=== PATIENT | male | born 1975 | race Caucasian/White ===

== ENCOUNTER 2017-08-08 03:59 | Emergency (ER) | payer MEDICAID ==
[~2017-08-08] VITALS: Ht 172.7 cm; Wt 86.2 kg
[2017-08-08 04:27] LABS: HEMOGLOBIN 16.6 g/dL (14.1-18.0); LYMPH # 1.7 K/mm3 (0.7-4.5)
[2017-08-08 04:42] LABS: URINE BILIRUBIN - DIPSTICK NEGATIVE (NEG); URINE BLOOD NEGATIVE (NEG)
--- NOTE | 2017-08-08 05:27 | Emergency Room Report ---
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 N Clinical Suspician of Infection? N Mental Status: 1 - Regular (Normal Baseline) Sepsis Risk:Low Sepsis Risk Have you (or family members/close friends) recently traveled outside the [place]? N If Yes, where/when: Have you had exposure to infectious disease within the past month? N TB? Other? Specify: Source patient, RN notes reviewed, family, old records Exam Limitations no limitations Comment acute onset of rt upper abd pain with nausea - no fever Cardiac Chest Pain Chest pain indicative of cardiac No Timing/Duration this evening Severity moderate ALLERGIES Coded Allergies: Penicillins (08/08/17) History Medical History General CAD? Yes Angina: No PR: No Hypertension? Yes Hyperlipidemia? Yes CHF? No DVT? No PE? No COPD? No Asthma? No Anemia? No GERD? No Gastric ulcers? No GI Bleed? No Hernia? No Thyroid Problems? No Hypothyroidism? No CVA? No Seizures? No Diabetes? No Renal Insuffiency? No End Stage Renal Disease? No UTI? No Stones? No BPH? No GB Disease: No Nephritic Syndrome? No Asplenia? No Hepatitis? No Sickle Cell Disease? No Arthritis? No Migraines? No Cataracts? No Glaucoma? No MRSA? No HIV? No TB? No Anxiety? No Depression? No Cancer? No More? Yes Additional hx: PAEZ PARKINSON WHITE Immunization Hx DT/Tetanus Unknown Surgical Hx Previous Surgery?Y CARDIAC ABLATION Social History Smoking Hx Smoker: Current Every Day Smoker Tobacco: Yes Type Cigarettes Alcohol Alcohol: No Drugs none Review of Systems All Other Systems Reviewed and Negative Constitutional denies fever Eyes denies drainage ENT denies: ear pain, epistaxis, throat pain. Respiratory denies cough, denies shortness of breath Cardiovascular denies chest pain, denies palpitations, denies syncope Gastrointestinal see HPI, abdominal pain, nausea, vomiting Genitourinary denies: dysuria, frequency, hesitancy, hematuria. Musculoskeletal denies back pain, denies joint pain, denies neck pain Skin denies rash Psychiatric/Neurological denies headache, denies seizure Physical Exam Vital Signs Vital Signs Date Time Temp Pulse Resp B/P Pulse O2 O2 Flow FiO2 Ox Delivery Rate 08/08 0532 98.5 73 18 170/113 96 08/08 0403 98.5 71 18 174/130 92 - WBC >12,000 or <4,000 or 10% bands? 2 or more SIRS Criteria Met? B/P:170/113 MAP:144 Creatinine >2.0? UA output<0.5ml/kg/hr for 2 hrs? Platelet count >100,000? Lactate >2.0mmol/1? INR >1.2 or PTT > than 60 sec? Evidence of Organ Dysfunction? Provider documented clinical suspician of infection? N Sepsis Criteria Count: 0 Sepsis Risk: Low Sepsis Risk General Appearance no apparent distress Eye Exam - bilateral eye PERRL, bilateral eye EOMI Comment no icterus Ear, Nose, Throat normal ENT inspection Neck supple Respiratory Status No: respiratory distress. Lung Sounds bilateral: lungs clear. Cardiovascular regular rate/rhythm, no murmur Peripheral Pulses Pulses normal Yes Gastrointestinal soft, no organomegaly, no pulsatile mass, no guarding, no rebound, tenderness, positive murphys sign Back no CVA tenderness Extremities normal inspection Strength 4 Upper Ext (L), 4 Upper Ext (R), 4 Lower Ext (L), 4 Lower Ext (R) Neurologic alert, packager hand II-XII nml as tested, no motor/sensory deficits Reflexes Reflexes normal No Mental status normal mood/affect Skin intact Medical Decision Making LABS/Meds/Orders Pt receiving controlled substance in ED? No Results/Orders Laboratory Tests 08/08/17424: Urine Color YELLOW, Urine Appearance SL CLOUDY, Urine pH 7.0, Ur Specific [place] 1.015, Urine Protein NEGATIVE, Urine Ketones NEGATIVE, Urine Blood NEGATIVE, Urine Nitrate NEGATIVE, Urine Bilirubin NEGATIVE, Urine Urobilinogen 0.2, Ur Leukocyte Esterase NEGATIVE, Amorphous Sediment 2+, Urine Glucose NEGATIVE 08/08/17419: Amylase 73, Lipase 192 08/08/17419: Sodium 142, Potassium 3.5, Chloride 104, Carbon Dioxide 33 H, BUN 17, Creatinine 1.4 H, Estimated Creat Clear 84, Estimated GFR (MDRD) 56, Glucose 118 H, Calcium 9.1, Total Bilirubin 0.5, AST 32, ALT 36, Alkaline Phosphatase 74, Total Protein 8.0, Albumin 4.5, Globulin 3.5 H, Albumin/Globulin Ratio 1.3, WBC 7.3, RBC 5.50, Hgb 16.6, Hct 48.0, MCV 87.3, RDW 13.5, Plt Count 202, MPV 8.2, Gran % 70.1, Gran # 5.1, Lymphocytes % 23.0, Monocytes % 4.4, Eosinophils % 1.7, Basophils % 0.7, Lymphocytes # 1.7, Monocytes # 0.3, Eosinophils # 0.1, Basophils # 0.1, PUBS MCHC 34.6, MCH 30.2 Current Medication Orders Sig/Bonnie Start time Last Medication Dose Route Stop Time Status Admin Sodium Chloride 10 ML PRN PRN 08/08 430 AC IV 08/09 417 Orders Procedure Date/time Status DIET-NOTHING BY MOUTH 08/[address] ABD & PELVIS W/O CONTRAST 08/08 507 Active LIPASE 08/08 434 Complete AMYLASE 08/[address] ABD/PELVIS REQ 08/08 417 Active IV SALINE LOCK 08/08 417 Active URINALYSIS/COMPLETE 08/08 417 Complete CBC WITH AUTO DIFF 08/08 417 Complete CHEM 12 PROFILE 08/08 417 Complete XRAY/CT/US XRAY/CT/US CT abdomen, pelvis CT interpretation by discussed w/radiologist Time results known: 0617 CT Results abnormal Comment see report Departure Departure Time of Disposition 610 Disposition DC Home or Self Care(routine) Clinical Impression Primary Impression: Abdominal pain Qualifiers: Abdominal location: right upper quadrant Qualified Code: R10.11 - Right upper quadrant pain Condition STABLE Referrals Aniyah MUSA,Jermaine CARLOS MD,CLEMENCIA Espinosa Patient Instructions DI for Gallbladder or Biliary Tubes, DIET-GALLBLADDER NUTRITION [facility] Additional Instructions fluids and see surg for gallbladder eval Discharge Counseling Counseled pt/family regarding diagnosis, test results, medications/RX, follow up needs ED Critical Care Critical Care No at 0617
--- NOTE | 2017-08-08 05:27 | Emergency Room Report ---
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 N Clinical Suspician of Infection? N Mental Status: 1 - Regular (Normal Baseline) Sepsis Risk:Low Sepsis Risk Have you (or family members/close friends) recently traveled outside the [place]? N If Yes, where/when: Have you had exposure to infectious disease within the past month? N TB? Other? Specify: Source patient, RN notes reviewed, family, old records Exam Limitations no limitations Comment acute onset of rt upper abd pain with nausea - no fever Cardiac Chest Pain Chest pain indicative of cardiac No Timing/Duration this evening Severity moderate ALLERGIES Coded Allergies: Penicillins (08/08/17) History Medical History General CAD? Yes Angina: No MA: No Hypertension? Yes Hyperlipidemia? Yes CHF? No DVT? No PE? No COPD? No Asthma? No Anemia? No GERD? No Gastric ulcers? No GI Bleed? No Hernia? No Thyroid Problems? No Hypothyroidism? No CVA? No Seizures? No Diabetes? No Renal Insuffiency? No End Stage Renal Disease? No UTI? No Stones? No BPH? No GB Disease: No Nephritic Syndrome? No Asplenia? No Hepatitis? No Sickle Cell Disease? No Arthritis? No Migraines? No Cataracts? No Glaucoma? No MRSA? No HIV? No TB? No Anxiety? No Depression? No Cancer? No More? Yes Additional hx: PAEZ PARKINSON WHITE Immunization Hx DT/Tetanus Unknown Surgical Hx Previous Surgery?Y CARDIAC ABLATION Social History Smoking Hx Smoker: Current Every Day Smoker Tobacco: Yes Type Cigarettes Alcohol Alcohol: No Drugs none Review of Systems All Other Systems Reviewed and Negative Constitutional denies fever Eyes denies drainage ENT denies: ear pain, epistaxis, throat pain. Respiratory denies cough, denies shortness of breath Cardiovascular denies chest pain, denies palpitations, denies syncope Gastrointestinal see HPI, abdominal pain, nausea, vomiting Genitourinary denies: dysuria, frequency, hesitancy, hematuria. Musculoskeletal denies back pain, denies joint pain, denies neck pain Skin denies rash Psychiatric/Neurological denies headache, denies seizure Physical Exam Vital Signs Vital Signs Date Time Temp Pulse Resp B/P Pulse O2 O2 Flow FiO2 Ox Delivery Rate 08/08 0532 98.5 73 18 170/113 96 08/08 0403 98.5 71 18 174/130 92 - WBC >12,000 or <4,000 or 10% bands? 2 or more SIRS Criteria Met? B/P:170/113 MAP:144 Creatinine >2.0? UA output<0.5ml/kg/hr for 2 hrs? Platelet count >100,000? Lactate >2.0mmol/1? INR >1.2 or PTT > than 60 sec? Evidence of Organ Dysfunction? Provider documented clinical suspician of infection? N Sepsis Criteria Count: 0 Sepsis Risk: Low Sepsis Risk General Appearance no apparent distress Eye Exam - bilateral eye PERRL, bilateral eye EOMI Comment no icterus Ear, Nose, Throat normal ENT inspection Neck supple Respiratory Status No: respiratory distress. Lung Sounds bilateral: lungs clear. 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 No Results/Orders Laboratory Tests 08/08/17424: Urine Color YELLOW, Urine Appearance SL CLOUDY, Urine pH 7.0, Ur Specific [place] 1.015, Urine Protein NEGATIVE, Urine Ketones NEGATIVE, Urine Blood NEGATIVE, Urine Nitrate NEGATIVE, Urine Bilirubin NEGATIVE, Urine Urobilinogen 0.2, Ur Leukocyte Esterase NEGATIVE, Amorphous Sediment 2+, Urine Glucose NEGATIVE 08/08/17419: Amylase 73, Lipase 192 08/08/17419: Sodium 142, Potassium 3.5, Chloride 104, Carbon Dioxide 33 H, BUN 17, Creatinine 1.4 H, Estimated Creat Clear 84, Estimated GFR (MDRD) 56, Glucose 118 H, Calcium 9.1, Total Bilirubin 0.5, AST 32, ALT 36, Alkaline Phosphatase 74, Total Protein 8.0, Albumin 4.5, Globulin 3.5 H, Albumin/Globulin Ratio 1.3, WBC 7.3, RBC 5.50, Hgb 16.6, Hct 48.0, MCV 87.3, RDW 13.5, Plt Count 202, MPV 8.2, Gran % 70.1, Gran # 5.1, Lymphocytes % 23.0, Monocytes % 4.4, Eosinophils % 1.7, Basophils % 0.7, Lymphocytes # 1.7, Monocytes # 0.3, Eosinophils # 0.1, Basophils # 0.1, PUBS MCHC 34.6, MCH 30.2 Current Medication Orders Sig/Bonnie Start time Last Medication Dose Route Stop Time Status Admin Sodium Chloride 10 ML PRN PRN 08/08 430 AC IV 08/09 417 Orders Procedure Date/time Status DIET-NOTHING BY MOUTH 08/[address] ABD & PELVIS W/O CONTRAST 08/08 507 Active LIPASE 08/08 434 Complete AMYLASE 08/[address] ABD/PELVIS REQ 08/08 417 Active IV SALINE LOCK 08/08 417 Active URINALYSIS/COMPLETE 08/08 417 Complete CBC WITH AUTO DIFF 08/08 417 Complete CHEM 12 PROFILE 08/08 417 Complete XRAY/CT/US XRAY/CT/US CT abdomen, pelvis CT interpretation by discussed w/radiologist Time results known: 0617 CT Results abnormal Comment see report Departure Departure Time of Disposition 610 Disposition DC Home or Self Care(routine) Clinical Impression Primary Impression: Abdominal pain Qualifiers: Abdominal location: right upper quadrant Qualified Code: R10.11 - Right upper quadrant pain Condition STABLE Referrals Aniyah MUSA,Jermaine CARLOS MD,CLEMENCIA Espinosa Patient Instructions DI for Gallbladder or Biliary Tubes, DIET-GALLBLADDER NUTRITION [facility] Additional Instructions fluids and see surg for gallbladder eval Discharge Counseling Counseled pt/family regarding diagnosis, test results, medications/RX, follow up needs ED Critical Care Critical Care No at 0617
[2017-08-08 06:28] VITALS: BP 183/105
--- NOTE | 2017-08-08 09:38 | RADIOLOGY REPORT PS360 ---
CT ABD PELVIS W/O CONTRAST CLINICAL INDICATION: Right upper quadrant pain and tenderness ABD PAIN ORDERING PHYSICIAN: Tania Severino MD PATIENT AGE: 42 years COMPARISON: None TECHNIQUE: Axial images obtained with sagittal and coronal reformats. PROCEDURE: Oral Contrast: None IV Contrast: None . FINDINGS: Lower thorax: No acute finding ABDOMEN: Liver: No masses or biliary dilatation. Gallbladder: There may be some mild gallbladder wall thickening and there is nonspecific hyperdensity in the gallbladder which may be due to sludge or stones. Gallbladder ultrasound may be of further value. Pancreas: No masses or peripancreatic fluid collections. Spleen: Unremarkable. Adrenals: Unremarkable Kidneys/ureters: No masses. No renal calculi. No hydronephrosis. No perinephric fluid collections. No ureteral dilatation or obvious ureteral calculi. Stomach bowel: Nondistended. No obvious mass or thickening. Appendix: No evidence of appendicitis. PELVIS: Reproductive: Unremarkable Bladder: Nondistended. No obvious stones or masses. ABDOMEN & PELVIS: Peritoneum: No abnormal fluid collections. No obvious inflammatory changes. No free air. Lymph nodes: No enlarged lymph nodes apparent. Vasculature: No evidence of abdominal aortic aneurysm. No retroperitoneal hemorrhage evident. Bones: No acute fracture. There is partial fusion of L4-L5 IMPRESSION: 1. Mild gallbladder wall thickening with possible stones and/or sludge. Ultrasound suggested. 2. Otherwise negative CT abdomen pelvis without contrast
--- OUTSIDE RECORDS SUMMARY | 2017-08-09 03:19 | External Medical Summary Rpt | CCD ---
Author Author , LARISSA DIAS Address Unknown Phone Care Team Providers Care Alternative Dispute Resolution Mediator Name Role Phone [facility] Unavailable Unavailable MEDICAL GROUP, [facility] HABASH KEF, HABASH Unavailable Unavailable [facility]EF HABASH KEF, HABASH Unavailable Unavailable [facility] Unavailable Unavailable HOLDINGS, [facility] Unavailable Unavailable HOLDINGS, [facility] VANESSA MENDEZ Unavailable Unavailable Purpose Continuity of Care Document - 05-07-2016 through 2016 Problems Code Diagnosis DOS Provider Status H7292 UNS 07-06-2017 ORIENTAL ORTHODOX PERFORATION HEALTH OF MEDICAL TYMPANIC GROUP MEMBRANE LT EAR I10 ESSENTIAL 07-06-2017 ORIENTAL ORTHODOX PRIMARY HEALTH HYPERTENSIO MEDICAL N GROUP L729 FOLLICULAR 07-06-2017 ORIENTAL ORTHODOX CYST [facility] SKIN & SUBQ MEDICAL TISSUE UNS GROUP Z6830 BODY MASS 07-06-2017 ORIENTAL ORTHODOX INDEX BMI HEALTH 30.0-30.9 MEDICAL ADULT GROUP [id number] HYPERMETROP 06-13-2016 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 ZEINAB N HOLDINGS 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 SHE HYPERLIPIDE ZEINAB KASSY HOLDINGS Medications Na ND Rx Da Fi Fi Am Da Di Ph RX Ph St me C No te ll ll ou ys ag ar # ys at rm s nt no ma ic us Or Da si cy ia de te s n re d CL 00 09 10 30 10 00 CV Ac IN 59 -1 -1 .0 00 S ti DA 12 4- 3- 00 01 PH ve MY 93 20 20 39 AR CI 20 17 17 64 MA N 1 23 CY HC L #0 30 23 0 32 MG CA PS UL E HY 53 04 05 [address] 74 -1 -1 .0 00 S ti OC 60 9- 2- 00 01 PH ve OD 10 20 20 33 AR ON 90 17 17 46 MA -A 1 55 CY CE TA #0 AL 23 NO 32 PH EN 5- 32 5 CL 65 04 05 42 7 00 CV Ac IN 86 -1 -1 .0 00 S ti DA 20 9- 2- 00 01 PH ve MY 18 20 20 33 AR CI 50 17 17 46 MA N 1 57 CY HC L #0 15 23 0 32 MG CA PS UL E AT 00 03 04 30 30 00 CV Ac OR 37 -2 -2 .0 00 S ti VA 83 5- 1- [address] 95 20 20 20 AR AT 07 17 17 68 MA IN 7 08 CY 10 #0 23 MG 32 TA BL ET LI 68 03 04 30 30 00 CV Ac SI 18 -2 -2 .0 00 S ti NO 00 5- 1- 00 01 PH ve LA 51 20 20 20 AR [place] 80 17 17 58 MA -H [address] Z #0 10 23 -1 32 2. 5 MG TA B BU 10 03 04 30 30 00 CV Ac LA 37 -2 -2 .0 00 S ti OP 00 5- 1- 00 01 PH ve IO 10 20 20 20 AR N 15 17 17 58 MA HC 0 67 CY L XL #0 23 15 32 0 MG TA BL ET LI 68 01 02 30 30 00 CV Ac SI 18 -0 -0 .0 00 S ti NO 00 9- 3- 00 01 PH ve LA 51 20 20 20 AR [place] 80 17 17 58 MA -H [address] Z #0 10 23 -1 32 2. 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 HOLDINGS HOLDINGS Encounters Encounter Start End Date Code Location Performer Type Date OFFICE 85[address] ILSA FERGUSON 7 7 HEALTH T VISIT MEDICAL 25 GROUP MINUTES
--- OUTSIDE RECORDS SUMMARY | 2017-08-09 03:19 | External Medical Summary Rpt | CCD ---
Author Author , LARISSA DIAS Address Unknown Phone [email or web address] Care Team Providers Care Blasting Miner Name Role Phone [facility] Unavailable Unavailable MEDICAL GROUP, [facility] HABASH KEF, HABASH Unavailable Unavailable KEF HABASH KEF, HABASH Unavailable Unavailable [facility] Unavailable Unavailable HOLDINGS, [facility] Unavailable Unavailable HOLDINGS, [facility] VANESSA MENDEZ Unavailable Unavailable Purpose Continuity of Care Document - 05-07-2016 through 2016 Problems Code Diagnosis DOS Provider Status H7292 UNS 07-06-2017 SCIENTOLOGY PERFORATION HEALTH OF MEDICAL TYMPANIC GROUP MEMBRANE LT EAR I10 ESSENTIAL 07-06-2017 SCIENTOLOGY PRIMARY HEALTH HYPERTENSIO MEDICAL N GROUP L729 FOLLICULAR 07-06-2017 SCIENTOLOGY CYST THE [facility] SKIN & SUBQ MEDICAL TISSUE UNS GROUP Z6830 BODY MASS 07-06-2017 SCIENTOLOGY INDEX BMI HEALTH 30.0-30.9 MEDICAL ADULT GROUP [...] -A 1 55 CY CE TA #0 [place] 23 NO 32 PH EN 5- 32 [...] 00 5- 1- 00 01 PH ve MO 51 20 20 20 AR [place] 80 17 17 58 MA -H [address] Z #0 10 23 -1 32 2. 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
--- OUTSIDE RECORDS SUMMARY | 2017-08-09 03:19 | External Medical Summary Rpt | CCD ---
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 Name Role Phone [facility] Unavailable Unavailable MEDICAL GROUP, [facility] HABASH KEF, HABASH Unavailable Unavailable KEF HABASH KEF, HABASH Unavailable Unavailable [facility] Unavailable Unavailable HOLDINGS, [facility] Unavailable Unavailable HOLDINGS, [facility] VANESSA MENDEZ Unavailable Unavailable Purpose Continuity of Care Document - 05-07-2016 through 2016 Problems Code Diagnosis DOS Provider Status H7292 UNS 07-06-2017 [facility]GL[facility] PERFORATION HEALTH OF MEDICAL TYMPANIC GROUP MEMBRANE LT EAR I10 ESSENTIAL 07-06-2017 [facility] PRIMARY HEALTH HYPERTENSIO MEDICAL N GROUP L729 FOLLICULAR 07-06-2017 [facility] CYST [facility] SKIN & SUBQ MEDICAL TISSUE UNS GROUP Z6830 BODY MASS 07-06-2017 ANGLICAN INDEX BMI HEALTH 30.0-30.9 MEDICAL ADULT GROUP [...] -A 1 55 CY CE TA #0 [place] 23 NO 32 PH EN 5- 32 [...] 00 5- 1- 00 01 PH ve [place] 51 20 20 20 AR [place] 80 17 17 58 MA -H [address] Z #0 10 23 -1 32 2. 5 MG TA B BU 10 03 04 30 30 00 CV Ac [place] 37 -2 -2 .0 00 S ti [...] 00 9- 3- 00 01 PH ve [place] 51 20 20 20 AR [place] 80 [...] -A 1 00 CY CE TA #0 [place] 23 NO 32 PH EN 5- 32 5 Procedures Procedure DOS Code Location Performer Comment OPHTH 738[address] 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
--- OUTSIDE RECORDS SUMMARY | 2017-08-09 03:19 | External Medical Summary Rpt | CCD ---
Author Author , LARISSA DIAS Address Unknown Phone [email or web address] Care Team Providers Care Superintendent Circus Name Role Phone [facility] Unavailable Unavailable MEDICAL GROUP, [facility] HABASH KEF, HABASH Unavailable Unavailable KEF HABASH KEF, HABASH Unavailable Unavailable [facility] Unavailable Unavailable HOLDINGS, [facility] Unavailable Unavailable HOLDINGS, [facility] VANESSA MENDEZ Unavailable Unavailable Purpose Continuity of Care Document - 05-07-2016 through 2016 Problems Code Diagnosis DOS Provider Status H7292 UNS 07-06-2017 [facility] PERFORATION HEALTH OF MEDICAL TYMPANIC GROUP MEMBRANE LT EAR I10 ESSENTIAL 07-06-2017 [facility] PRIMARY HEALTH HYPERTENSIO MEDICAL N GROUP L729 FOLLICULAR 07-06-2017 [facility] CYST THE [facility] SKIN & SUBQ MEDICAL TISSUE UNS GROUP Z6830 BODY MASS 07-06-2017 [facility] INDEX BMI HEALTH 30.0-30.9 MEDICAL ADULT GROUP [...] -A 1 55 CY CE TA #0 [place] 23 NO 32 PH EN 5- 32 [...] 00 5- 1- 00 01 PH ve [place] 51 20 20 20 AR [place] 80 17 17 58 MA -H [address] Z #0 10 23 -1 32 2. 5 MG TA B BU 10 03 04 30 30 00 CV Ac [place] 37 -2 -2 .0 00 S ti [...] 00 9- 3- 00 01 PH ve [place] 51 20 20 20 AR [place] 80 [...] -A 1 00 CY CE TA #0 NV 23 NO 32 PH EN 5- 32 5 Procedures Procedure DOS Code Location Performer Comment OPHTH 410[address] [facility] 6 KEF KEF XM&EVAL COMPRE NEW PT 1/> VST LIPID 55717 LAB SHE LAB SHE PANEL 6 ZEIN[place] [address] LAB SHE LAB SHE TESTOSTER 6 ZEINAB ZEINAB [employer] HOLDINGS BLOOD 63929 LAB SHE LAB SHE COUNT 6 ZEINAB ZEINAB COMPLETE HOLDINGS HOLDINGS AUTO&[place] [address] LAB SHE LAB SHE THYROID 6 ZEINAB ZEINAB STIMULATI HOLDINGS HOLDINGS NG HORMONE TSH Encounters Encounter Start End Date Code Location Performer Type Date OFFICE 53106 ILSA FER[place]USON 7 7 HEALTH T VISIT MEDICAL 25 GROUP MINUTES
--- OUTSIDE RECORDS SUMMARY | 2017-08-09 03:20 | External Medical Summary Rpt ---
Author Author [facility] [employer], [facility] [employer] Organization [facility] [employer] Address Unknown Phone Unavailable Results CBC W Auto Differential panel in Blood Observa Value Referen Units Interpr Notes Date tion ce etation Range Basophils 0 - 0.2 K/MM3 Normal No Aug 08 informati 2016 4:20 [#/volume on in AM ] in source Blood by data Automated count Basophils 0.1 - 2.0 % Normal No Aug 08 informati 2016 4:20 leukocyte on in AM s in source Blood by data Automated count Eosinophi 0.0 - 0.4 K/mm3 Normal No Aug 08 ls informati 2016 4:20 [#/volume on in AM ] in source Blood by data Automated count Eosinophi 0.1 - % Normal No Aug 08 ls/100 12.0 informati 2016 4:20 leukocyte on in AM s in source Blood by data Automated count Granulocy 1.3 - 8.0 K/mm3 Normal No Aug 08 titus informati 2017 4:20 [#/volume on in AM ] in source Blood by data Automated count Granulocy 37.0 - % Normal No Aug 08 titus/100 80.0 informati 2016 4:20 leukocyte on in AM s in source Blood by data Automated count Hematocri 42.0 - % Normal No Aug 08 t [Volume 52.0 informati 2016 4:20 on in AM Fraction] source of Blood data Hemoglobi 14.1 - g/dL Normal No Aug 08 n 18.0 informati 2016 4:20 [Mass/vol on in AM ume] in source Blood data Lymphocyt 0.7 - 4.5 K/mm3 Normal No Aug 08 es informati 2016 4:20 [#/volume on in AM ] in source Unspecifi data ed specimen by Automated count Lymphocyt 10 - 50 % Normal No Aug 08 es informati 2016 4:20 [#/volume on in AM ] in source Unspecifi data ed specimen by Automated count Erythrocy 27 - 31.2 pg Normal No Aug 08 te mean informati 2017 4:20 corpuscul on in AM ar source hemoglobi data n [Entitic mass] Erythrocy 31.8 - g/dl Normal No Aug 08 te mean 35.4 informati 2017 4:20 corpuscul on in AM ar source hemoglobi data n concentra tion [Mass/vol ume] by Automated count Erythrocy 82.2 - fl Normal No Aug 08 te mean 97.8 informati 2017 4:20 corpuscul on in AM ar volume source [Entitic data volume] by Automated count Monocytes 0.1 - 1.0 K/mm3 Normal No Jul 14 informati 2016 4:20 [#/volume on in AM ] in source Blood by data Automated count Monocytes 1.7 - 9.3 % Normal No Jul 14 /100 informati 2017 4:20 leukocyte on in AM s in source Blood by data Automated count Platelet 7.4 - fl Normal No Aug 08 mean 10.4 informati 2016 4:20 volume on in AM [Entitic source volume] data in Blood by Automated count Platelets 142 - 424 K/mm3 Normal No Jul 14 informati 2017 4:20 [#/volume on in AM ] in source Blood data Erythrocy 4.6 - 6.2 M/mm3 Normal No Jul 14 titus informati 2017 4:20 [#/volume on in AM ] in source Amniotic data fluid Erythrocy 11.5 - % Normal No Jul 14 te 17.5 informati 2016 4:20 distribut on in AM ion width source [Entitic data volume] by Automated count Leukocyte 4.8 - K/MM3 Normal No Jul 14 s 10.8 informati 2016 4:20 [#/volume on in AM ] in source Blood data
--- OUTSIDE RECORDS SUMMARY | 2017-08-09 03:20 | External Medical Summary Rpt | CCD ---
Demographics Preferred Language Citizen Of [place] Marital Status Unknown Bahai Affiliation Unknown Race Unknown Ethnic Group Unknown Author Author , [facility] Address Unknown Phone Immunization No patient found.
--- OUTSIDE RECORDS SUMMARY | 2017-08-09 03:20 | External Medical Summary Rpt | CCD ---
Demographics Preferred Language [place] Marital Status Unknown Scientologist Affiliation Unknown Race Unknown Ethnic Group Unknown Author Author , LARIS[facility] DI[facility] Address Unknown Phone Immunization No patient found.
== END 2017-08-08 06:29 | disposition home or self-care (01) ==
LOC: ER 03:59
PROVIDERS: Emergency Medicine
DX: R10.11 Right upper quadrant pain (principal); I10 Essential (primary) hypertension; I25.10 Atherosclerotic heart disease of native coronary artery without angina pectoris; F17.210 Nicotine dependence, cigarettes, uncomplicated
CPT/HCPCS: J2405